=== PATIENT | female | born 1965 | race Caucasian/White ===

== ENCOUNTER → 2020-05-11 | Outpatient (CLI) | payer BC ==
[2020-05-11 13:58] LABS: BASO # 0.1 x10^3/uL (0.0-0.2); BASO % 1 % (0-3); EOS % 0 % (0-3); HEMOGLOBIN 13.9 g/dL (12.0-15.5); LYMPH # 1.6 x10^3/uL (1.0-4.8); LYMPH % 14 % (24-48); MEAN CORPUSCULAR HEMOGLOBIN 28 pg (25-35); MEAN CORPUSCULAR HGB CONC 32 g/dL (31-37); MEAN CORPUSCULAR VOLUME 88 fL (79-100); MONO # 0.4 x10^3/uL (0.0-1.1); MONO % 3 % (0-9); NEUT # 9.4 x10^3uL (1.8-7.7); NEUT % 82 % (31-73); PLATELET COUNT 305 x10^3/uL (140-400); RED CELL DISTRIBUTION WIDTH 13.4 % (11.5-14.5); WHITE BLOOD COUNT 11.5 x10^3/uL (4.0-11.0)
[2020-05-11 14:00] LABS: CREATININE 0.9 mg/dL (0.6-1.0); GFR 65.5; POTASSIUM 3.7 mmol/L (3.5-5.1)
[2020-05-11 14:06] LABS: ALBUMIN 3.5 g/dL (3.4-5.0); ALBUMIN/GLOBULIN RATIO 0.9 (1.0-1.7); C REACTIVE PROTEIN 9.4 mg/L (0-3.3); TOTAL BILIRUBIN 0.2 mg/dL (0.2-1.0); TOTAL PROTEIN 7.4 g/dL (6.4-8.2)
--- NOTE | 2020-05-11 15:19 | RAD ---
AP and Lateral Views of the Chest 05/11/2020 1:05 PM Indication: Reason: BLADDER SX X 3 MONTHS AGO - NO ANTICOAGULANTS / Spl. Instructions: / History: Comparison: None Findings: There is no focal consolidation or infiltrate identified. The cardiomediastinal silhouette is within normal limits. There is no evidence of pneumothorax or pleural effusion. No acute osseous a bnormalities are identified. Impression: No evidence of acute cardiopulmonary process. Electronically signed by: Teodoro Healy MD (05/11/2020 3:17 PM) [id number]
== END ==
LOC: RAD 12:52
PROVIDERS: ATTEND Family Medicine
DX: R00.0 Tachycardia, unspecified (principal)
CPT/HCPCS: 36415; 71046; 80053; 84484; 85025; 85379; 86140